=== PATIENT | female | born 1955 | race Caucasian/White ===

== ENCOUNTER → 2017-04-10 | Outpatient (CLI) | payer BC | END | disposition home or self-care (01) | LOC: GMAL 11:29 | PROVIDERS: ATTEND Family Medicine | DX: D50.0 Iron deficiency anemia secondary to blood loss (chronic) (principal) ==

== ENCOUNTER → 2017-10-09 | Outpatient (CLI) | payer BC | LOC: GMAL 11:24 | PROVIDERS: ATTEND Family Medicine | DX: Z00.00 Encounter for general adult medical examination without abnormal findings (principal) ==

== ENCOUNTER → 2017-12-15 | Outpatient (CLI) | payer BC | LOC: GMAL 10:19 | PROVIDERS: ATTEND Family Medicine | DX: D50.0 Iron deficiency anemia secondary to blood loss (chronic) (principal) ==

== ENCOUNTER → 2018-04-20 | Outpatient (CLI) | payer MEDICARE | LOC: GMAL 11:41 | PROVIDERS: ATTEND Family Medicine | DX: D51.3 Other dietary vitamin B12 deficiency anemia (principal); D50.0 Iron deficiency anemia secondary to blood loss (chronic); R53.83 Other fatigue; E55.9 Vitamin D deficiency, unspecified ==

== ENCOUNTER → 2018-05-06 | Outpatient (CLI) | payer MEDICARE ==
--- NOTE | 2018-05-06 16:28 | MRI ---
EXAM DESCRIPTION: Lumbar Spine w/o Contrast : Magnetic Resonance Imaging. CLINICAL HISTORY: LOW BACK PAIN COMPARISON: MRI scan thoracic spine on this visit. Radiographs of the lumbar spine 05/13/2017. TECHNIQUE: Multiplanar, multiple standard sequences, non contrast MRI, lumbar spine. FINDINGS: L5-S1: Disc desiccation and disc space preserved. No significant bulging. Minimal canal narrowing due to bony morphology. Bilateral foramina are patent. Posterior elements unremarkable. L4-5: Minimal disc space loss and disc desiccation. Midline and right lateral Modic type I endplate reactive changes with disc spur complex encroaching on the foramen and the exiting right L4 nerve with minimal foraminal stenosis. Right paracentral disc protrusion 7 mm encroaching on the thecal sac and displacing the descending left L5 nerve in the upper right subarticular recess. Right paracentral moderate canal stenosis. Minimal facet arthrosis and bilateral flavum ligament hypertrophy. Mild narrowing left foramen. L3-4: Disc desiccation and grade 1 anterolisthesis. Marked hypertrophy of the flavum ligaments and bilateral facet arthrosis impressing on the posterior thecal sac. 5 mm bulge of the disc to the left of midline abutting the left thecal sac and descending left L3 nerve. AP canal diameter 8 mm. Right foramen patent with mild narrowing of the left foramen. Minimal deformity bilateral L3 pars interarticulares more on the left, with marrow edema. L2-3: Disc desiccation and posterior disc space loss. Posterior broad-based disc bulge more to the left than the right. Posterior Modic type I endplate reactive changes. The posterior disc bulge 4 mm. Moderate hypertrophy of the flavum ligaments and the lateral facet arthrosis impressing on the posterior thecal sac with AP canal diameter 10 mm. Mild to moderate narrowing of the right foramen with left foramen patent. L1-2: Disc desiccation with minimal anterior bulging. No posterior bulging. Minimal hypertrophy of the flavum ligaments. Canal and foramina are patent. Conus terminates at L1. T12-L1: Disc desiccation and tiny posterior bulge. Conus terminates at this level and bilateral foramina are patent. Right convex T12 L3 curvature. Paravertebral soft tissues show bilateral paraspinal muscle atrophy.. Otherwise normal marrow signal in the remaining vertebral bodies and the posterior elements. Vertebral bodies are not compressed at any level. IMPRESSION: 1. Right side spondylosis L4-5 with disc spur complex encroaching on the right foramen and right L4 nerve. Correlate for radiculopathy. Right paracentral disc protrusion impressing on the descending right L5 nerve with moderate canal stenosis. 2. Grade 1 anterolisthesis L3-4. 5 mm bulge of the disc to the left of midline abutting the descending left L3 nerve. Mild to moderate canal stenosis. Bilateral L3 pars interarticularis defects more on the left with marrow edema. 3. Posterior broad-based L2-3 disc bulge 4 mm. Multifactorial borderline mild canal stenosis. Mild to moderate narrowing of the right foramen. Electronically signed by: Lokesh Emerson MD 05/06/2018 4:27 PM CDT
--- NOTE | 2018-05-06 17:09 | MRI ---
EXAM DESCRIPTION: Thoracic Spine w/o Contrast: Magnetic Resonance Imaging. CLINICAL HISTORY: MID BACK PAIN COMPARISON: MRI scan lumbar spine on the same visit. TECHNIQUE: Multiplanar, multiple standard sequences, non contrast MRI, thoracic spine. Axial scans T1-T4 and T6 to the top of T12. FINDINGS: Anterior Modic type I endplate reactive changes at T8-9 with anterior endplate ridging and anterior disc space loss. Also minimal posterior disc space loss and desiccation but no significant bulging. No canal or foraminal stenosis. Anterior osteophytes also with disc bulge into the right of midline at T7-8, T9-10, T10-11. Smaller anterior midline Modic type I changes at T4-5 and T5-6 with no posterior disc bulge canal or foraminal stenosis. Minimal posterior focal bulge to the right of midline at T6-7. Minimal facet arthrosis at several levels but no significant canal or foraminal narrowing caused by the facets. Remaining discs with normal signal. Disc spaces are preserved. Canal and foramina are patent. No scoliosis. Facet joints are unremarkable. Conus terminates at L1. Mid thoracic dextroscoliosis. Paravertebral soft tissues show minimal paraspinal muscle atrophy. Normal marrow signal in the vertebral bodies and the posterior elements. Vertebral bodies are not compressed at any level. IMPRESSION: 1. No vertebral body compression type fractures at any level. No significant disc herniation. No canal or foraminal stenosis. Minimal mid thoracic dextroscoliosis. 2. Multiple levels of disc desiccation and anterior spondylosis as described, most prominent at the T8-T9 level. Electronically signed by: Lokesh Emerson MD 05/06/2018 5:08 PM CDT
== END ==
LOC: MRI 14:00
PROVIDERS: ATTEND Family Medicine
DX: M47.896 Other spondylosis, lumbar region (principal); M47.894 Other spondylosis, thoracic region; M51.26 Other intervertebral disc displacement, lumbar region; M43.16 Spondylolisthesis, lumbar region

== ENCOUNTER → 2018-07-20 | Outpatient (CLI) | payer MEDICARE | LOC: GMAL 12:16 | PROVIDERS: ATTEND Family Medicine | DX: D51.3 Other dietary vitamin B12 deficiency anemia (principal); D50.0 Iron deficiency anemia secondary to blood loss (chronic); E55.9 Vitamin D deficiency, unspecified ==

== ENCOUNTER → 2018-12-01 | Outpatient (CLI) | payer MEDICARE | LOC: GMAM 14:15 | PROVIDERS: ATTEND Family Medicine | DX: D50.0 Iron deficiency anemia secondary to blood loss (chronic) (principal) ==

== ENCOUNTER → 2019-03-02 | Outpatient (CLI) | payer MEDICARE | LOC: GMAL 14:41 | PROVIDERS: ATTEND Family Medicine | DX: I48.2 Chronic atrial fibrillation (principal); E78.49 Other hyperlipidemia; I10 Essential (primary) hypertension ==

== ENCOUNTER → 2019-04-22 | Outpatient (CLI) | payer MEDICARE | LOC: GMAL 10:56 | PROVIDERS: ATTEND Family Medicine | DX: D51.3 Other dietary vitamin B12 deficiency anemia (principal); E55.9 Vitamin D deficiency, unspecified; I48.2 Chronic atrial fibrillation; E78.49 Other hyperlipidemia ==

== ENCOUNTER → 2019-10-29 | Outpatient (CLI) | payer MEDICARE | LOC: GMAL 13:01 | PROVIDERS: ATTEND Family Medicine | DX: E55.9 Vitamin D deficiency, unspecified (principal); I48.20 Chronic atrial fibrillation, unspecified; I10 Essential (primary) hypertension ==

== ENCOUNTER → 2020-01-24 | Outpatient (CLI) | payer MEDICARE | LOC: GMAL 11:30 | PROVIDERS: ATTEND Family Medicine | DX: M26.629 Arthralgia of temporomandibular joint, unspecified side (principal) ==

== ENCOUNTER 2020-04-10 11:23 | Emergency (ER) | payer MEDICARE ==
--- NOTE | 2020-04-10 13:34 | ED.PDOC ---
History of Present Illness - General Chief Complaint: General Stated Complaint: right leg pain Time Seen by Provider: 04/10/20 13:31 Source: patient, RN notes reviewed, Vital Signs reviewed Exam Limitations: no limitations - History of Present Illness Initial Comments: Patient is a 64-year-old white female who presents with complaints of right leg pain and mild swelling. Patient has a history of DVT and PE and is taking Coumadin and has complaints of right leg swelling for the last week. The pain is worse in the right leg than in the left. Is worse in the morning as she gets up and starts moving. It improves with ambulation. Timing/Duration: 1 week Severity: moderate Improving Factors: movement Worsening Factors: immobilization Associated Symptoms: denies symptoms Allergies/Adverse Reactions: Allergies NO KNOWN ALLERGY Allergy (Verified 03/23/16 07:53) Home Medications: Ambulatory Orders Atorvastatin Calcium [Lipitor] 20 mg PO DAILY 04/10/20 Cholecalciferol [D3 2000] 1,000 unit PO DAILY 04/10/20 Cyanocobalamin [B12] 1,000 mcg PO DAILY 04/10/20 Furosemide 20 mg PO DAILY 04/10/20 Methylprednisolone [Medrol Dose Carlito] 4 mg PO DAILY 6 Days #21 tab 04/10/20 Metoprolol Tartrate 100 mg PO BID 04/10/20 Pantoprazole Sodium 40 mg PO DAILY 04/10/20 Spironolactone 25 mg PO DAILY 04/10/20 Warfarin Sodium 2.5 mg PO DAILY 04/10/20 Review of Systems - Review of Systems Constitutional: States: no symptoms reported, see HPI. Denies: chills, fever, malaise, weakness EENTM: States: no symptoms reported. Denies: eye pain, blurred vision, double vision Respiratory: States: no symptoms reported. Denies: cough, orthopnea, short of breath, stridor, wheezing Cardiology: States: no symptoms reported. Denies: chest pain, edema, palpitations, syncope Gastrointestinal/Abdominal: States: no symptoms reported. Denies: abdominal pain, diarrhea, nausea, vomiting Genitourinary: States: no symptoms reported Musculoskeletal: States: see HPI, muscle pain, muscle stiffness Skin: States: no symptoms reported. Denies: change in color, rash Neurological: States: no symptoms reported. Denies: headache, tingling, tremors, weakness Endocrine: States: no symptoms reported Hematologic/Lymphatic: States: no symptoms reported All other Systems: Reviewed and Negative, No Change from Baseline Past Medical History (General) - Patient Medical History Hx Stroke: No Hx of COPD: No Hx Cardiac Disorders: Yes - afib Hx Congestive Heart Failure: No Hx Hypertension: Yes Hx Diabetes: No - Vaccination History Hx Influenza Vaccination: No Hx Pneumococcal Vaccination: No - Activities of Daily Living Hospice Agency (if applicable):: None - Female History Patient is a Female of Child Bearing Age (10 -59 yrs old): No Patient : No Family Medical History - Family History Mother Family History: Unknown Physical Exam - Physical Exam General Appearance: Alert, Anxious, Well Developed, Well Groomed, Well Hydrated, Well Nourished Eye Exam: bilateral normal Ears, Nose, Throat: hearing grossly normal, normal ENT inspection, normal pharynx Neck: non-tender, full range of motion, supple, normal inspection Respiratory: chest non-tender, lungs clear, normal breath sounds, no respiratory distress, no accessory muscle use Cardiovascular/Chest: normal peripheral pulses, regular rate, rhythm, no edema, no gallop, no JVD, no murmur Peripheral Pulses: radial,right: 2+, radial,left: 2+ Gastrointestinal/Abdominal: normal bowel sounds, non tender, soft, no organomegaly Back Exam: normal inspection, no CVA tenderness, no vertebral tenderness Extremity: normal range of motion, normal capillary refill, calf tenderness - Mild calf tenderness on the right. Positive Homans sign. No cords felt., swelling - Right lower extremity with redness to the distal lower extremity on the right., other - 1+ DP pulses bilateral and equal. Neurologic: health services administrator II-XII nml as tested, no motor/sensory deficits, alert, normal mood/affect, oriented x 3 Skin Exam: warm/dry, other - Redness at the distal right lower extremity. Non- cellulitic appearing Lymphatic: no adenopathy Progress - Progress Progress: Differential diagnosis: DVT, arterial insufficiency, vascular insufficiency, fasciitis among others. 04/10/20 14:53 Patient's lab work has returned. INR is greater than 2. Ultrasound does not show a DVT. Patient states that she had this started back in January and at that time her primary care doctor gave her a steroid prescription and she improved for a while. Based on this and the description of her symptoms, I think it more likely she has some type of fasciitis or vasculitis. Plan on discharge home with a prescription for Medrol Dosepak and follow-up with PCP for potential referral to vascular surgery for further testing. I discussed this plan of care with the patient she voices understanding and agreement. Justin Peters M.D. #[id number] - Results/Orders Results/Orders: 04/10/20 14:57 CPK [CREATINE PHOSPHOKINASE] Stat Laboratory Results - last 24 hr 04/10/20 04/10/20 04/10/20 12:02 12:02 12:02 WBC 4.9 RBC 5.04 Hgb 14.1 Hct 41.9 MCV 83.1 MCH 28.0 MCHC 33.7 RDW 15.3 H Plt Count 221 MPV 8.6 Absolute Neuts (auto) 3.00 Absolute Lymphs (auto) 1.10 Absolute Monos (auto) 0.50 Absolute Eos (auto) 0.10 Absolute Basos (auto) 0.10 Neutrophils % 61.8 Lymphocytes % 23.4 Monocytes % 10.8 H Eosinophils % 2.5 Basophils % 1.5 PT 21.8 H INR 2.20 H PTT (SP) 29.8 Sodium 137 Potassium 4.1 Chloride 102 Carbon Dioxide 24 Anion Gap 15.1 BUN 24 H Creatinine 0.88 BUN/Creatinine Ratio 27.3 H Random Glucose 87 Serum Osmolality 277.2 Calcium 9.7 Total Bilirubin 0.8 AST 24 ALT 16 Alkaline Phosphatase 72 Serum Total Protein 7.7 Albumin 3.8 Globulin 3.9 H Albumin/Globulin Ratio 1.0 L Vital Signs 04/10/20 04/10/20 04/10/20 11:30 11:33 12:24 Temperature 97.0 F L 97.0 F L Pulse Rate [ 74 74 57 L brachial] Respiratory 16 16 16 Rate Blood Pressure 170/103 164/106 [Left Arm] O2 Sat by Pulse 97 96 Oximetry 04/10/20 13:00 Temperature 97.1 F L Pulse Rate [ 52 L brachial] Respiratory 16 Rate Blood Pressure 173/86 [Left Arm] O2 Sat by Pulse 97 Oximetry Departure - Departure Clinical Impression: Lower extremity pain, diffuse Qualifiers: Laterality: unspecified laterality Qualified Code(s): M79.606 - Pain in leg, unspecified Time of Disposition: 14:56 Disposition: Discharge to Home or Self Care Condition: Fair Departure Forms: ED Discharge - Pt. Copy, Patient Portal Self Enrollment Diet: resume usual diet Activity: increase activity as tolerated Referrals: Wilton Mayes III, MD [Primary Care Provider] - 1-2 Days Prescriptions: Methylprednisolone [Medrol Dose Carlito] 4 mg PO DAILY 6 Days #21 tab Home Medications: Ambulatory Orders Atorvastatin Calcium [Lipitor] 20 mg PO DAILY 04/10/20 Cholecalciferol [D3 2000] 1,000 unit PO DAILY 04/10/20 Cyanocobalamin [B12] 1,000 mcg PO DAILY 04/10/20 Furosemide 20 mg PO DAILY 04/10/20 Methylprednisolone [Medrol Dose Carlito] 4 mg PO DAILY 6 Days #21 tab 04/10/20 Metoprolol Tartrate 100 mg PO BID 04/10/20 Pantoprazole Sodium 40 mg PO DAILY 04/10/20 Spironolactone 25 mg PO DAILY 04/10/20 Warfarin Sodium 2.5 mg PO DAILY 04/10/20
--- NOTE | 2020-04-10 14:42 | US ---
EXAM DESCRIPTION: Venous,Lower Extremity RT: ULTRASOUND. CLINICAL HISTORY: right leg pain, hx DVT COMPARISON: None Available. TECHNIQUE: Zelaya-scale and doppler sonographic evaluation of the deep venous system of the right lower extremity. FINDINGS: Doppler evaluation shows normal color flow and normal phasicity and augmentation of the right common femoral vein, femoral vein, popliteal vein, greater saphenous vein, junction with the CFV. Also normal color flow and normal phasicity and augmentation of the peroneal, and posterior tibial vein. The right lower extremity deep veins were completely compressible; normal occlusion with transducer pressure. Zelaya-scale survey showed no echogenic thrombus within these veins. IMPRESSION: 1. Duplex ultrasound evaluation of the right lower extremity deep venous system showing no evidence of thrombosis. Electronically signed by: Lokesh Emerson MD 04/10/2020 2:40 PM CDT
[2020-04-10 15:05] VITALS: BP 173/98
[2020-04-10 15:21] VITALS: TEMP 96.7; O2SAT 96
== END 2020-04-10 15:21 | disposition home or self-care (01) ==
LOC: ER 11:23
DX: M79.661 Pain in right lower leg (principal); M79.89 Other specified soft tissue disorders; I48.91 Unspecified atrial fibrillation; I10 Essential (primary) hypertension; Z79.899 Other long term (current) drug therapy; Z79.01 Long term (current) use of anticoagulants

== ENCOUNTER → 2020-05-16 | Outpatient (CLI) | payer MEDICARE ==
--- NOTE | 2020-05-18 11:48 | CT ---
TECHNIQUE: Volumetric CT angiographic data acquisition obtained of the head and neck using CTA head and neck protocol following the intravenous administration of contrast. Axial reconstructions submitted. Coronal, oblique and sagittal MIP slab reconstructions also performed on computer workstation. 3D MIP reformats provided. Grading system is mild <50%, moderate 50-69%, and severe 70% and greater. This exam was performed according to our departmental dose-optimization program, which includes automated exposure control, adjustment of the mA and/or kV according to patient size and/or use of iterative reconstruction technique. CLINICAL HISTORY PROVIDED: OCCLUSION AND STENOSIS OF UNSPEC CAROTID ARTERY COMPARISON: None available. FINDINGS: Aorta / Proximal Great Vessels : Unremarkable. Right Carotid: Atherosclerotic plaque in the carotid bulb and proximal right internal carotid artery. Focal 70% stenosis of the proximal right internal carotid artery spanning a distance of 5 mm. Right Vertebral: Unremarkable. No stenosis, occlusion, or dissection. Left Carotid: Atherosclerotic plaque in the carotid bulb and proximal left internal carotid artery without hemodynamically significant stenosis. Left Vertebral: Unremarkable. No stenosis, occlusion, or dissection. Visible Intracranial Vasculature: Calcified plaque in the carotid siphons. Incidental Findings: None of significance. IMPRESSION: Focal 70% stenosis in the proximal right internal carotid artery. Electronically signed by: Clay Marion MD 05/18/2020 11:46 AM CDT
== END ==
LOC: CT 11:00
PROVIDERS: ATTEND Family Medicine
DX: Z01.812 Encounter for preprocedural laboratory examination (principal); I65.21 Occlusion and stenosis of right carotid artery

== ENCOUNTER → 2020-07-03 | Outpatient (CLI) | payer MEDICARE | LOC: GMAL 14:45 | PROVIDERS: ATTEND Family Medicine | DX: D51.3 Other dietary vitamin B12 deficiency anemia (principal); R73.9 Hyperglycemia, unspecified; R53.83 Other fatigue; E55.9 Vitamin D deficiency, unspecified; Z79.899 Other long term (current) drug therapy; E78.49 Other hyperlipidemia; Z79.01 Long term (current) use of anticoagulants ==

== ENCOUNTER → 2020-10-02 | Outpatient (CLI) | payer MEDICARE ==
--- NOTE | 2020-10-03 11:30 | US ---
EXAM DESCRIPTION: 3D Diagnostic, Bilateral (accession [id number]), Breast,Right (accession [id number]): Ultrasound CLINICAL HISTORY: 65 yearsFemaleBREAST LUMP right axilla with itching and redness of the overlying skin, and same region on left axilla. No family history of breast cancer. Menarche age 10. Childbirth age 32. Menopause age unknown. Lifetime risk of developing breast cancer (Tyrer-Cuzick model)(%): 7.9. COMPARISON: Baseline study at this facility. No prior reports for comparison. TECHNIQUE: Bilateral LM, CC, and MLO projection full-field images, digital tomosynthesis technique. Bilateral 2-D digital full-field images: LM, CC, and MLO projections CAD available for 2-D images.. Transcutaneous scanning of the right breast utilizing wang-scale and Doppler modes. Scanning performed by the forensic medical examiner ; remote monitoring by Dr. Emerson. FINDINGS: The breast parenchymal density pattern is: Scattered areas of fibroglandular density. Solitary microcalcifications bilaterally. Triangular skin marker in the region of interest inferior right axilla. Small calcification in the adjacent fatty tissue. Intramammary lymph node posterior-lateral right breast in the axillary tail. No skin thickening or nipple retraction No focal, stellate mass or density, focal asymmetry , and no suspicious microcalcifications bilaterally. Ultrasound: Ultrasound of the region of interest right axilla and site of skin marker. Mostly fatty tissue in the region of interest. No dominant solid mass, no distinct cysts, no fluid collection, no large calcifications. Erythema and scaliness of the overlying skin. IMPRESSION: Benign exam. BIRAD CATEGORY: 2 BENIGN FINDINGS. RECOMMENDATIONS: FOLLOW UP: Routine digital bilateral mammographic screening, one year interval from September 2020. Written communication explaining the IMPRESSION and follow-up, will be mailed to the patient and referring health care provider. The FINDINGS and the FOLLOW-UP plan were reviewed in person with the patient after the examination. According to the [employer], yearly mammograms are recommended starting at age 40 and continuing as long as a woman is in good health. Any breast change noted on a breast self-exam should be reported promptly to the patient's healthcare provider. Breast MRI is recommended for women with an approximately 20-25% or greater lifetime risk of breast cancer, including women with a strong family history of breast or ovarian cancer and women who have been treated for Hodgkin's disease. A negative mammographic report should not delay tissue diagnosis in patients with significant clinical history or physical findings. Extremely dense breast tissue limits the sensitivity of digital mammography. Electronically signed by: Lokesh Emerson MD 10/03/2020 11:28 AM [facility]
== END ==
LOC: MAMMO 13:14
PROVIDERS: ATTEND Family Medicine
DX: N63.31 Unspecified lump in axillary tail of the right breast (principal)
CPT/HCPCS: 76641; 77066; G0279